=== PATIENT | male | born 1955 | race Caucasian/White ===

== ENCOUNTER 2021-03-26 07:13 | Day surgery (SDC) | payer MEDICARE, MEDICAID ==
[2021-03-26] VITALS (11 sets, daily range): BP systolic 100–165; BP diastolic 58–96
[~2021-03-26] VITALS: Ht 170.2 cm; Wt 79.3 kg
[2021-03-26] MEDS ORDERED: NO HOME MEDS (07:34)
[2021-03-26] MEDS ORDERED: LIDOcaine 1% 30ml preserv. free vial SQ STA (07:45)
[2021-03-26] MEDS: albumin 25% 100mL bottle x 1 IV PRN ×2 (09:15→10:10)
--- NOTE | 2021-03-26 09:48 | NUR ---
Paracentesis cath removed, cath intact, small amt of blood noted at procedure site, pressure applied, hemostasis achieved easily, drsg applied. VSS, pt carlin procedure well. Now pt sitting up in bed drinking juice and doughnut that Lise brought in pt tolerating food and drink.
== END 2021-03-26 11:15 | disposition home or self-care (01) ==
LOC: SSTAY O 07:13
PROVIDERS: ATTEND Preventive Medicine Aerospace Medicine
DX: R18.8 Other ascites (principal); I25.2 Old myocardial infarction; Z86.19 Personal history of other infectious and parasitic diseases; Z98.890 Other specified postprocedural states; Z79.899 Other long term (current) drug therapy
CPT/HCPCS: 49083; J3490; P9047

== ENCOUNTER 2021-06-07 06:35 | Observation (INO) | payer MEDICARE, OTHER ==
[~2021-06-07] VITALS: Ht 170.2 cm; Wt 72.3 kg
[2021-06-07] VITALS (30 sets, daily range): BP systolic 60–137; BP diastolic 22–99
[~2021-06-07 06:35] MED LIST: NO HOME MEDS
[2021-06-07] MEDS ORDERED: SPIR50TA5 PO (06:59)
[2021-06-07] MEDS ORDERED: FURO40TA4 PO (06:59)
[2021-06-07] MEDS ORDERED: RIBA200T14 PO (06:59)
[2021-06-07] MEDS ORDERED: SOFO1TAB PO (06:59)
[2021-06-07] MEDS ORDERED: LIDOcaine 1%/PF 5ML 10 MG/ML VIAL IJ ONE (07:05)
[2021-06-07 10:57] LABS: ALBUMIN,BODY FLUID 1.1 G/DL; TOTAL PROTEIN,BODY FLUID 2.6 G/DL
[2021-06-07] MEDS ORDERED: normal saline 1000ml 1,000 ML IV ONE ×2 (11:20→12:30)
--- NOTE | 2021-06-07 11:20 | NUR ---
Notified Lydia GRAFF that patients BP 83/49. Order to bolus patient 1L normal saline and administer 1 more 25% albumin 100 mL.
[2021-06-07 11:47] LABS: BFAPPEAR CLEAR; BFCOLOR YELLOW
[2021-06-07 11:48] LABS: BF RBC COUNT 28 /CU MM; BF WBC COUNT 190 /CU MM (0-1000); BFVOLUME 49 ML; LYMPHOCYTES,BODY FLUID 74 %; MONOCYTES,BODY FLUID 16 %; NEUTROPHILS,BODY FLUID 10 %
--- NOTE | 2021-06-07 12:10 | NUR ---
Notified Dr. Sanches that patient remains hypotensive s/p large volume paracentesis. MD present bedside with orders to position patient in trendelenburg and continue to bolus patient with NS. Will continue to monitor.
--- NOTE | 2021-06-07 12:30 | NUR ---
Rapid response initiated to further evaluate patient for hypotension. Dr. Sanches present bedside.
--- NOTE | 2021-06-07 13:15 | NUR ---
Report called to ESDRAS Winn. Will transport patient to [facility] 3019.
--- NOTE | 2021-06-07 13:42 | NUR ---
Received patient to PCU. Pt was moved over to bed from [facility] with the help of 3 nurses. Pt is alert and oriented and is able to make his needs be known. SBP is holding in the 80's with a MAP greater than 60. Pt does not c/o pain or s/s of distress. DR Richard King is aware that the patient last used heroin this AM. Jamie wilkinson is aware that there are no orders. Pending all orders. Will monitor patient.
--- NOTE | 2021-06-07 14:02 | NUR ---
Dr King in room - orthostatic VS performed. He will enter admit orders. Ok to start NS @ 80.
[2021-06-07] MEDS ORDERED: acetaminophen 325mg tablet PO PRN (14:40)
[2021-06-07] MEDS ORDERED: normal saline 1000ml 1,000 ML IV SCH (14:40)
[2021-06-07] MEDS ORDERED: potassium CL 10mEq/100ml bag 100 ML IV PRN (14:40)
[2021-06-07] MEDS ORDERED: ondansetron/PF 4mg/2ml inj IV PRN (14:40)
[2021-06-07] MEDS ORDERED: potassium Cl 20 mEq SR tablet PO PRN ×2 (14:40)
[2021-06-07] MEDS ORDERED: magnesium 4gm in 100ml NS 100 ML IV PRN (14:40)
[2021-06-07 15:20] LABS: BASOPHILS % (AUTO) 0.2 % (0-1); EOSINOPHILS % (AUTO) 0.8 % (0-6); HEMOGLOBIN 10.6 g/dl (14.0-17.9); LYMPHOCYTES # (AUTO) 1.2 X10'3 (1.1-4.8); LYMPHOCYTES % (AUTO) 20.8 % (21-51); MEAN CORPUSCULAR HEMOGLOBIN 32.8 PG (27.0-31.0); MEAN CORPUSCULAR HGB CONC 33.1 g/dL (33.0-36.5); MEAN PLATELET VOLUME 8.8 FL (7.4-10.4); MONOCYTES # (AUTO) 0.4 X10'3 (0-0.9); MONOCYTES % (AUTO) 7.9 % (2-12); NEUTROPHILS # (AUTO) 3.9 X10'3 (1.8-7.7); NEUTROPHILS % (AUTO) 70.3 % (42-75); PLATELET COUNT 113 X10'3 (140-440); RED BLOOD COUNT 3.23 X10'6 (4.70-6.10); WHITE BLOOD COUNT 5.5 X10'3 (4.5-11.0)
[2021-06-07 15:35] LABS: ALANINE AMINOTRANSFERASE 12 U/L (12-78); ALBUMIN 3.7 G/DL (3.4-5.0); ALBUMIN/GLOBULIN RATIO 1.2 (1.1-1.5); ALKALINE PHOSPHATASE 59 IU/L (46-116); ANION GAP 9 (8-16); ASPARTATE AMINO TRANSFERASE 19 U/L (10-37); BILIRUBIN,TOTAL 1.8 MG/DL (0.1-1.0); BLOOD UREA NITROGEN 27 MG/DL (7-18); BUN/CREATININE RATIO 23.7 (5.4-32.0); CALCIUM 7.7 MG/DL (8.5-10.1); CHLORIDE 105 MMOL/L (99-107); CREATININE 1.14 MG/DL (0.60-1.10); GLUCOSE 86 MG/DL (70-104); MAGNESIUM 1.9 MG/DL (1.5-2.4); POTASSIUM 3.8 MMOL/L (3.5-5.1); SODIUM 141 MMOL/L (135-145); TOTAL CARBON DIOXIDE 26.6 MMOL/L (24-32); TOTAL PROTEIN 6.8 G/DL (6.4-8.2); eGFR 64 ML/MIN
--- NOTE | 2021-06-07 18:10 | NUR ---
1526 reassessment on NS in emar not completed as this medication is still active and long line teamster Christine wants to continue med.
[2021-06-07] MEDS: albumin 25% 100mL bottle x 1 IV PRN ×3 (19:42→19:46)
--- NOTE | 2021-06-07 21:49 | NUR ---
Spoke with Dr Levi regarding the patient c/o withdrawals from his heroine and his BP on NS. Order received to stop the NS and continue to monitor the patients vitals. Will continue to monitor the patient.
[2021-06-08] VITALS (8 sets, daily range): BP systolic 130–161; BP diastolic 67–97
--- NOTE | 2021-06-08 06:37 | NUR ---
Problems reprioritized. Patient report given, questions answered & plan of care reviewed with Nancy DEWITT.
[2021-06-08 07:55] LABS: CHOL/HDL RATIO 2.8 (0.00-4.99); CHOLESTEROL 84 MG/DL (0-200); HDL CHOLESTEROL 30 MG/DL (35-60); LDL CHOLESTEROL 49 MG/DL (50-100); TRIGLYCERIDES 53 MG/DL (20-135)
[2021-06-08] MEDS ORDERED: VELPATASVIR PO SCH (08:00)
[2021-06-08] MEDS ORDERED: furosemide 20MG tablet PO SCH (08:00)
[2021-06-08] MEDS ORDERED: spironolactone 50 MG tablet PO SCH (08:00)
[2021-06-08] MEDS ORDERED: SOFOSBUVIR PO SCH (08:00)
[2021-06-08] MEDS ORDERED: aspirin 81mg, enteric-coated 1 TAB TABLET.DR PO ONE (08:05)
[2021-06-08] MEDS: morphine 4 MG/ML inj SYRINge IV PRN ×2 (10:28→14:18)
[2021-06-08] MEDS ORDERED: enoxaparin 60mg/0.6ml syringe SUBCUT SCH (10:28)
[2021-06-08] MEDS ORDERED: RIBA200T14 PO (13:34)
--- NOTE | 2021-06-08 16:51 | NUR ---
Patient reported having minimal drops of blood coming out from tip of penis. I examined penis and there does not seem to be any skin tears. Dr. King is aware and recommends patient monitor bleeding and if it persists, come back to ED. Discharge paperwork was reviewed with patient and SO at bedside. IV removed, catheter tip intact. Home medications received from pharmacy and given to patient. Patient free from injuries. Currently showering, then will go home.
== END 2021-06-08 17:42 | disposition home or self-care (01) ==
LOC: SSTAY O 06:35 → UNDOADMOB 13:58 → PCU 3S 13:58 → UNDODISOB 06-08 17:42
PROVIDERS: ADMIT Internal Medicine; ATTEND Internal Medicine
DX: I95.81 Postprocedural hypotension (principal); K74.60 Unspecified cirrhosis of liver; R18.8 Other ascites; E86.1 Hypovolemia; B19.20 Unspecified viral hepatitis C without hepatic coma; K76.6 Portal hypertension; H66.90 Otitis media, unspecified, unspecified ear; I05.0 Rheumatic mitral stenosis; I21.A1 Myocardial infarction type 2; I85.10 Secondary esophageal varices without bleeding; F17.200 Nicotine dependence, unspecified, uncomplicated; I25.2 Old myocardial infarction; F11.90 Opioid use, unspecified, uncomplicated; F15.90 Other stimulant use, unspecified, uncomplicated; Z79.899 Other long term (current) drug therapy
CPT/HCPCS: 36415; 49083; 71045; 80053; 80061; 82042; 83735; 84157; 84484; 85025; 85610; 87070; 87081; 89051; 93306; 96361; 96365; 96366; 96372; 96375; 96376; G0378; G0379; J1650; J2270; J7030; P9047; 96374

== ENCOUNTER 2021-07-05 07:17 | Day surgery (SDC) | payer MEDICARE, MEDICAID ==
[~2021-07-05] VITALS: Ht 177.8 cm; Wt 69.1 kg
[2021-07-05] VITALS (16 sets, daily range): BP systolic 105–154; BP diastolic 47–77
[~2021-07-05 07:17] MED LIST changes: +FURO40TA4 PO; -NO HOME MEDS; +RIBA200T14 PO; +SOFO1TAB PO; +SPIR50TA5 PO
[2021-07-05] MEDS ORDERED: LIDOcaine 1%/PF 5ML 10 MG/ML VIAL SQ ONE (07:45)
[2021-07-05] MEDS ORDERED: METH-603 PO (07:55)
[2021-07-05] MEDS: albumin 25% 100mL bottle x 1 IV PRN ×3 (09:45→12:08)
[2021-07-05 11:16] LABS: TOTAL PROTEIN,BODY FLUID 2.2 G/DL
[2021-07-05 11:32] LABS: LYMPHOCYTES,BODY FLUID 75 %; MONOCYTES,BODY FLUID 17 %; NEUTROPHILS,BODY FLUID 8 %
[2021-07-05 11:33] LABS: BF MESOTHELIAL CELLS OCCASIONAL; BF RBC COUNT 200 /CU MM; BF WBC COUNT 243 /CU MM (0-1000); BFAPPEAR CLEAR; BFCOLOR YELLOW; BFVOLUME 55 ML
== END 2021-07-05 13:20 | disposition home or self-care (01) ==
LOC: SSTAY O 07:17
PROVIDERS: ATTEND Radiology Vascular & Interventional Radiology
DX: R18.8 Other ascites (principal); I25.2 Old myocardial infarction; Z86.19 Personal history of other infectious and parasitic diseases; Z90.79 Acquired absence of other genital organ(s); Z79.899 Other long term (current) drug therapy
CPT/HCPCS: 49083; 82042; 84157; 89051; J3490; P9047

== ENCOUNTER 2021-08-26 08:36 | Day surgery (SDC) | payer MEDICARE, MEDICAID ==
[2021-08-26] VITALS (11 sets, daily range): BP systolic 115–158; BP diastolic 56–96
[~2021-08-26] VITALS: Ht 170.2 cm; Wt 68.2 kg
[~2021-08-26 08:36] MED LIST changes: +METH-603 PO
[2021-08-26] MEDS ORDERED: LIDOcaine 1%/PF 5ML 10 MG/ML VIAL SQ ONE (08:45)
[2021-08-26] MEDS ORDERED: METH-603 PO (08:50)
[2021-08-26] MEDS: albumin 25% 100mL bottle x 1 IV PRN ×2 (10:37→10:38)
== END 2021-08-26 12:10 | disposition home or self-care (01) ==
LOC: SSTAY O 08:36
PROVIDERS: ATTEND Radiology Diagnostic Radiology
DX: R18.8 Other ascites (principal); K74.60 Unspecified cirrhosis of liver; Z79.899 Other long term (current) drug therapy; Z98.890 Other specified postprocedural states; Z86.19 Personal history of other infectious and parasitic diseases
CPT/HCPCS: 49083; J3490; P9047; Z7610; A6258; A6449

== ENCOUNTER 2021-09-28 00:53 | Inpatient (IN) | payer MEDICARE, MEDICAID ==
[~2021-09-28] VITALS: Ht 170.2 cm; Wt 77.5 kg
[~2021-09-28 00:53] MED LIST changes: -RIBA200T14 PO; -SOFO1TAB PO
[2021-09-28 04:24] LABS: APTT 30 SECONDS (22-32); BASOPHILS % (AUTO) 0.4 % (0-1); EOSINOPHILS % (AUTO) 0 % (0-6); HEMOGLOBIN 13.7 g/dl (14.0-17.9); LYMPHOCYTES # (AUTO) 0.8 X10'3 (1.1-4.8); LYMPHOCYTES % (AUTO) 11.6 % (21-51); MEAN CORPUSCULAR HEMOGLOBIN 32.9 PG (27.0-31.0); MEAN CORPUSCULAR HGB CONC 33.5 g/dL (33.0-36.5); MEAN CORPUSCULAR VOLUME 98.3 FL (78-98); MEAN PLATELET VOLUME 8.9 FL (7.4-10.4); MONOCYTES # (AUTO) 0.5 X10'3 (0-0.9); MONOCYTES % (AUTO) 7.7 % (2-12); NEUTROPHILS # (AUTO) 5.6 X10'3 (1.8-7.7); NEUTROPHILS % (AUTO) 80.3 % (42-75); PLATELET COUNT 104 X10'3 (140-440); RED BLOOD COUNT 4.17 X10'6 (4.70-6.10); RED CELL DISTRIBUTION WIDTH 13.6 % (11.5-14.5); WHITE BLOOD COUNT 6.9 X10'3 (4.5-11.0)
[2021-09-28 04:25] LABS: ALANINE AMINOTRANSFERASE 21 U/L (12-78); ALBUMIN 2.9 G/DL (3.4-5.0); ALBUMIN/GLOBULIN RATIO 0.7 (1.1-1.5); ALKALINE PHOSPHATASE 75 IU/L (46-116); ANION GAP 6 (8-16); ASPARTATE AMINO TRANSFERASE 22 U/L (10-37); BILIRUBIN,TOTAL 0.9 MG/DL (0.1-1.0); BLOOD UREA NITROGEN 19 MG/DL (7-18); BUN/CREATININE RATIO 19.6 (5.4-32.0); CALCIUM 7.9 MG/DL (8.5-10.1); CHLORIDE 102 MMOL/L (99-107); CREATININE 0.97 MG/DL (0.60-1.10); GLUCOSE 111 MG/DL (70-104); POTASSIUM 3.9 MMOL/L (3.5-5.1); SODIUM 140 MMOL/L (135-145); TOTAL CARBON DIOXIDE 31.6 MMOL/L (24-32); TOTAL PROTEIN 7.2 G/DL (6.4-8.2); eGFR 77 ML/MIN
[2021-09-28] MEDS ORDERED: HYDROmorphone 1 mg/ml syringe IV ONE ×2 (04:40→05:20)
[2021-09-28] MEDS ORDERED: mag hydrox/Alum hydrox/simeth 30ml oral suspension PO PRN (05:55)
[2021-09-28] MEDS ORDERED: POTASSIUM BICARB 20meq eff tab 20 MEQ TABLET.EFF PO PRN ×2 (05:55)
[2021-09-28] MEDS ORDERED: ondansetron/PF 4mg/2ml inj IV PRN (05:55)
[2021-09-28] MEDS ORDERED: acetaminophen 325mg tablet PO PRN (05:55)
[2021-09-28] MEDS ORDERED: magnesium 4gm in 100ml NS 100 ML IV PRN (05:55)
[2021-09-28] MEDS ORDERED: potassium CL 10mEq/100ml bag 100 ML IV PRN (05:55)
[2021-09-28] MEDS ORDERED: magnesium hydroxide 30ml (MOM) UD suspension PO PRN (05:55)
[2021-09-28] MEDS ORDERED: HYDROmorphone/PF 0.2 MG/ML SYRINGE IV PRN (05:55)
[2021-09-28] MEDS ORDERED: magnesium Cl slow-release 64mg tablet PO PRN (05:55)
[2021-09-28] MEDS ORDERED: magnesium 2GM in 50ml NS 50 ML IV PRN (05:55)
[2021-09-28] MEDS: methadone 10mg tablet PO SCH (08:00)
[2021-09-28] MEDS: K and/or MAG REPLACEMENT MC SCH ×2 (08:00→20:00)
[2021-09-28] MEDS: enoxaparin 40mg/0.4ml syringe SUBCUT SCH (08:00)
--- NOTE | 2021-09-28 08:18 | NUR ---
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 DOSE ON APR NO ADMIN
[2021-09-28 08:48] LABS: APTT 31 SECONDS (22-32)
[2021-09-28] MEDS: docusate sod 100mg capsule PO SCH ×2 (09:01→20:21)
[2021-09-28] MEDS: furosemide 40mg tablet PO SCH (09:02)
--- NOTE | 2021-09-28 09:11 | NUR ---
COVID swab done.
[2021-09-28] MEDS: HYDROmorphone inj. 0.5 MG/0.5 ML DISP.SYRIN IV PRN ×3 (10:53→20:30)
[2021-09-28 12:07] VITALS: BP 127/78
[2021-09-28] MEDS: HYDROcodone/acetaminophen 10/325mg tab PO PRN (14:33)
[2021-09-28 17:00] VITALS: BP 143/67
--- NOTE | 2021-09-28 19:34 | NUR ---
Patient in room ORTHO 4010. I have received report from STEFFANIE DEWITT and had the opportunity to ask questions and assume patient care.
[2021-09-28 22:00] VITALS: BP 140/79
[2021-09-29] VITALS (14 sets, daily range): BP systolic 116–154; BP diastolic 52–89
[2021-09-29] MEDS: HYDROmorphone inj. 0.5 MG/0.5 ML DISP.SYRIN IV PRN ×4 (00:25→17:12)
[2021-09-29 06:28] LABS: BASOPHILS % (AUTO) 0.2 % (0-1); EOSINOPHILS # (AUTO) 0.1 X10'3 (0-0.9); EOSINOPHILS % (AUTO) 1.4 % (0-6); HEMATOCRIT 37.3 % (42.0-52.0); HEMOGLOBIN 12.4 g/dl (14.0-17.9); LYMPHOCYTES # (AUTO) 1.5 X10'3 (1.1-4.8); LYMPHOCYTES % (AUTO) 28.9 % (21-51); MEAN CORPUSCULAR HEMOGLOBIN 32.9 PG (27.0-31.0); MEAN CORPUSCULAR HGB CONC 33.3 g/dL (33.0-36.5); MEAN CORPUSCULAR VOLUME 98.7 FL (78-98); MONOCYTES # (AUTO) 0.5 X10'3 (0-0.9); MONOCYTES % (AUTO) 9.9 % (2-12); NEUTROPHILS # (AUTO) 3.1 X10'3 (1.8-7.7); NEUTROPHILS % (AUTO) 59.6 % (42-75); PLATELET COUNT 100 X10'3 (140-440); RED BLOOD COUNT 3.78 X10'6 (4.70-6.10); RED CELL DISTRIBUTION WIDTH 13.4 % (11.5-14.5); WHITE BLOOD COUNT 5.3 X10'3 (4.5-11.0)
--- NOTE | 2021-09-29 06:44 | NUR ---
Problems reprioritized. Patient report given, questions answered & plan of care reviewed with STEFFANIE DEWITT.
[2021-09-29 07:09] LABS: ALANINE AMINOTRANSFERASE 20 U/L (12-78); ALBUMIN 2.3 G/DL (3.4-5.0); ALBUMIN/GLOBULIN RATIO 0.6 (1.1-1.5); ALKALINE PHOSPHATASE 58 IU/L (46-116); ANION GAP 7 (8-16); ASPARTATE AMINO TRANSFERASE 31 U/L (10-37); BILIRUBIN,TOTAL 0.8 MG/DL (0.1-1.0); BLOOD UREA NITROGEN 20 MG/DL (7-18); BUN/CREATININE RATIO 20.2 (5.4-32.0); CALCIUM 7.5 MG/DL (8.5-10.1); CHLORIDE 103 MMOL/L (99-107); CREATININE 0.99 MG/DL (0.60-1.10); GLUCOSE 65 MG/DL (70-104); SODIUM 140 MMOL/L (135-145); TOTAL CARBON DIOXIDE 30.4 MMOL/L (24-32); TOTAL PROTEIN 6.2 G/DL (6.4-8.2); eGFR 75 ML/MIN
[2021-09-29] MEDS ORDERED: morphine 2 MG/ML inj. syringe IV PRN (07:20)
[2021-09-29] MEDS ORDERED: ondansetron/PF 4mg/2ml inj IV PRN (07:20)
[2021-09-29] MEDS ORDERED: labetalol 20mg/4ml (5mg/ml) syringe IV PRN (07:20)
[2021-09-29] MEDS ORDERED: morphine 4 MG/ML inj SYRINge IV PRN (07:20)
[2021-09-29] MEDS ORDERED: ringers solution, lacted 1,000 ML IV SCH (07:20)
[2021-09-29] MEDS ORDERED: fentaNYL/PF 50MCG/1 ML 2ML syringe IV PRN ×2 (07:20)
[2021-09-29] MEDS ORDERED: hydrALAZINE 20mg/ml inj. IV PRN (07:20)
[2021-09-29] MEDS: enoxaparin 40mg/0.4ml syringe SUBCUT SCH (08:00)
[2021-09-29] MEDS: K and/or MAG REPLACEMENT MC SCH ×2 (08:00→20:00)
[2021-09-29] MEDS: furosemide 40mg tablet PO SCH (08:28)
[2021-09-29] MEDS: docusate sod 100mg capsule PO SCH ×2 (08:28→20:15)
[2021-09-29] MEDS: methadone 10mg tablet PO SCH (08:28)
[2021-09-29] MEDS ORDERED: BUPIVAcaine/PF 2.5 mg/ml (0.25%) 30ml vial ONE (09:18)
[2021-09-29] MEDS ORDERED: fentaNYL/PF 50MCG/1 ML 2ML syringe ONE (09:37)
[2021-09-29] MEDS ORDERED: midazolam 1 mg/ML 2ml injection ONE (09:37)
[2021-09-29] MEDS ORDERED: etomidate 2mg/ml inj. ONE (09:37)
[2021-09-29] MEDS ORDERED: ondansetron/PF 4mg/2ml inj ONE (09:38)
[2021-09-29] MEDS ORDERED: ceFAZolin 1000mg inj ONE ×2 (10:04)
[2021-09-29] MEDS ORDERED: LIDOcaine 1% W/epiNEPHrine 1:100,000 20ml vial ONE (10:15)
--- NOTE | 2021-09-29 10:55 | NUR ---
Received from OR via , accompanied by Anesthesiologist DR MUNROE and report given by Anesthesiolgist. PT IS UNRESPONSIVE WITH ORAL AIRWAY IN PLACE, VSS, O2 SAT 100%, RIGHT HIP 4X4;S WITH OPSITE CD, RIGHT FA 20G PATENT WITH LR 100ML/HR, RIGHT PEDAL PULSE VIA DOPPLER, NO C/O PAIN.
--- NOTE | 2021-09-29 11:35 | NUR ---
ORAL AIRWAY REMOVED, PT AWAKE AND SATING 95%
--- NOTE | 2021-09-29 11:37 | NUR ---
Report called to receiving nurse. Transferred via BED Belongings . Special Issues communicated to receiving nurse.PT IS AWAKE, ANSWERING SIMPLE QUESTIONS, NO C/O PAIN, VSS, IV PATENT, SCDS, RIGHT HIP DRESSING-RUDOLPH, XEROFORM AND 4X4S WITH OPSITE, PT MEETS DISCHARGE CRITERIA.
--- NOTE | 2021-09-29 11:59 | NUR ---
received report from recovery, patient arrived to floor, sleepy but oriented, no c/o pain IV fluids running as ordered, post op vitals started and stable
[2021-09-29] MEDS: HYDROcodone/acetaminophen 10/325mg tab PO PRN (20:15)
[2021-09-30] VITALS (10 sets, daily range): BP systolic 88–158; BP diastolic 49–89
[2021-09-30] MEDS: HYDROmorphone inj. 0.5 MG/0.5 ML DISP.SYRIN IV PRN (00:24)
[2021-09-30] MEDS: HYDROcodone/acetaminophen 10/325mg tab PO PRN ×2 (05:09→14:55)
[2021-09-30 06:09] LABS: BASOPHILS % (AUTO) 0.1 % (0-1); EOSINOPHILS % (AUTO) 0 % (0-6); HEMATOCRIT 37.7 % (42.0-52.0); HEMOGLOBIN 12.6 g/dl (14.0-17.9); LYMPHOCYTES # (AUTO) 1.1 X10'3 (1.1-4.8); LYMPHOCYTES % (AUTO) 13.7 % (21-51); MEAN CORPUSCULAR HEMOGLOBIN 32.8 PG (27.0-31.0); MEAN CORPUSCULAR HGB CONC 33.4 g/dL (33.0-36.5); MEAN CORPUSCULAR VOLUME 98.1 FL (78-98); MEAN PLATELET VOLUME 9.2 FL (7.4-10.4); MONOCYTES # (AUTO) 0.7 X10'3 (0-0.9); MONOCYTES % (AUTO) 8.4 % (2-12); NEUTROPHILS # (AUTO) 6.1 X10'3 (1.8-7.7); NEUTROPHILS % (AUTO) 77.8 % (42-75); PLATELET COUNT 109 X10'3 (140-440); RED BLOOD COUNT 3.85 X10'6 (4.70-6.10); RED CELL DISTRIBUTION WIDTH 13.8 % (11.5-14.5); WHITE BLOOD COUNT 7.9 X10'3 (4.5-11.0)
[2021-09-30 06:27] LABS: ALANINE AMINOTRANSFERASE 19 U/L (12-78); ALBUMIN 2.3 G/DL (3.4-5.0); ALBUMIN/GLOBULIN RATIO 0.6 (1.1-1.5); ALKALINE PHOSPHATASE 55 IU/L (46-116); ANION GAP 7 (8-16); ASPARTATE AMINO TRANSFERASE 27 U/L (10-37); BILIRUBIN,TOTAL 0.4 MG/DL (0.1-1.0); BLOOD UREA NITROGEN 30 MG/DL (7-18); BUN/CREATININE RATIO 22.4 (5.4-32.0); CALCIUM 7.6 MG/DL (8.5-10.1); CHLORIDE 101 MMOL/L (99-107); CREATININE 1.34 MG/DL (0.60-1.10); GLUCOSE 137 MG/DL (70-104); POTASSIUM 4.2 MMOL/L (3.5-5.1); SODIUM 138 MMOL/L (135-145); TOTAL CARBON DIOXIDE 30.5 MMOL/L (24-32); TOTAL PROTEIN 6.4 G/DL (6.4-8.2); eGFR 53 ML/MIN
--- NOTE | 2021-09-30 06:30 | NUR ---
Patient in room ORTHO 4023. I have received report from Christine Rodríguez and had the opportunity to ask questions and assume patient care.
[2021-09-30] MEDS: docusate sod 100mg capsule PO SCH ×2 (07:55→20:00)
[2021-09-30] MEDS: methadone 10mg tablet PO SCH (07:56)
[2021-09-30] MEDS: furosemide 40mg tablet PO SCH (07:58)
[2021-09-30] MEDS: K and/or MAG REPLACEMENT MC SCH ×2 (08:00→20:00)
[2021-09-30] MEDS: enoxaparin 40mg/0.4ml syringe SUBCUT SCH (08:00)
[2021-09-30] MEDS ORDERED: LIDOcaine 1%/PF 5ML 10 MG/ML VIAL ONE (09:08)
[2021-09-30] MEDS ORDERED: albumin (human) 25% 100 ML IV solution IV ONE (10:35)
[2021-09-30] MEDS ORDERED: ondansetron 4mg rapidly disintigrating tab PO PRN (10:40)
--- NOTE | 2021-09-30 18:12 | NUR ---
Problems reprioritized. Patient report given, questions answered & plan of care reviewed with Christine Rodríguez
[2021-10-01 06:00] VITALS: BP 110/59
--- NOTE | 2021-10-01 06:05 | NUR ---
Patient in room ORTHO 4023. I have received report from Christine Rodríguez and had the opportunity to ask questions and assume patient care.
[2021-10-01 06:19] LABS: BASOPHILS % (AUTO) 0.1 % (0-1); EOSINOPHILS % (AUTO) 0.4 % (0-6); HEMATOCRIT 37.3 % (42.0-52.0); HEMOGLOBIN 12.4 g/dl (14.0-17.9); LYMPHOCYTES # (AUTO) 1.6 X10'3 (1.1-4.8); LYMPHOCYTES % (AUTO) 23.7 % (21-51); MEAN CORPUSCULAR HEMOGLOBIN 32.7 PG (27.0-31.0); MEAN CORPUSCULAR HGB CONC 33.3 g/dL (33.0-36.5); MEAN CORPUSCULAR VOLUME 98.2 FL (78-98); MEAN PLATELET VOLUME 8.7 FL (7.4-10.4); MONOCYTES # (AUTO) 0.6 X10'3 (0-0.9); MONOCYTES % (AUTO) 8.9 % (2-12); NEUTROPHILS # (AUTO) 4.4 X10'3 (1.8-7.7); NEUTROPHILS % (AUTO) 66.9 % (42-75); PLATELET COUNT 99 X10'3 (140-440); RED BLOOD COUNT 3.79 X10'6 (4.70-6.10); RED CELL DISTRIBUTION WIDTH 13.3 % (11.5-14.5); WHITE BLOOD COUNT 6.5 X10'3 (4.5-11.0)
[2021-10-01 06:23] LABS: ALANINE AMINOTRANSFERASE 16 U/L (12-78); ALBUMIN 2.7 G/DL (3.4-5.0); ALBUMIN/GLOBULIN RATIO 0.9 (1.1-1.5); ALKALINE PHOSPHATASE 48 IU/L (46-116); ANION GAP 7 (8-16); ASPARTATE AMINO TRANSFERASE 28 U/L (10-37); BILIRUBIN,TOTAL 0.6 MG/DL (0.1-1.0); BLOOD UREA NITROGEN 28 MG/DL (7-18); BUN/CREATININE RATIO 26.7 (5.4-32.0); CALCIUM 7.4 MG/DL (8.5-10.1); CHLORIDE 104 MMOL/L (99-107); CREATININE 1.05 MG/DL (0.60-1.10); GLUCOSE 113 MG/DL (70-104); SODIUM 141 MMOL/L (135-145); TOTAL CARBON DIOXIDE 29.9 MMOL/L (24-32); TOTAL PROTEIN 5.7 G/DL (6.4-8.2); eGFR 70 ML/MIN
[2021-10-01] MEDS: K and/or MAG REPLACEMENT MC SCH ×2 (07:26→19:49)
[2021-10-01] MEDS: docusate sod 100mg capsule PO SCH ×2 (07:33→19:49)
[2021-10-01] MEDS: methadone 10mg tablet PO SCH (07:34)
[2021-10-01] MEDS: enoxaparin 40mg/0.4ml syringe SUBCUT SCH (07:36)
[2021-10-01] MEDS: furosemide 40mg tablet PO SCH (07:38)
[2021-10-01 07:40] VITALS: BP 116/64
[2021-10-01] MEDS: HYDROcodone/acetaminophen 10/325mg tab PO PRN ×3 (08:48→21:12)
[2021-10-01 10:00] VITALS: BP 136/55
[2021-10-01 18:00] VITALS: BP 119/62
--- NOTE | 2021-10-01 18:18 | NUR ---
Problems reprioritized. Patient report given, questions answered & plan of care reviewed with Christine Rodríguez
[2021-10-01 22:00] VITALS: BP 111/66
[2021-10-02] MEDS: HYDROcodone/acetaminophen 10/325mg tab PO PRN ×2 (01:24→12:59)
[2021-10-02 06:00] VITALS: BP 102/55
[2021-10-02 06:26] LABS: ALANINE AMINOTRANSFERASE 18 U/L (12-78); ALBUMIN 2.3 G/DL (3.4-5.0); ALBUMIN/GLOBULIN RATIO 0.7 (1.1-1.5); ALKALINE PHOSPHATASE 57 IU/L (46-116); ANION GAP 5 (8-16); ASPARTATE AMINO TRANSFERASE 30 U/L (10-37); BILIRUBIN,TOTAL 0.4 MG/DL (0.1-1.0); BLOOD UREA NITROGEN 26 MG/DL (7-18); BUN/CREATININE RATIO 29.9 (5.4-32.0); CALCIUM 7.3 MG/DL (8.5-10.1); CHLORIDE 105 MMOL/L (99-107); CREATININE 0.87 MG/DL (0.60-1.10); GLUCOSE 72 MG/DL (70-104); POTASSIUM 3.8 MMOL/L (3.5-5.1); SODIUM 141 MMOL/L (135-145); TOTAL CARBON DIOXIDE 30.6 MMOL/L (24-32); TOTAL PROTEIN 5.4 G/DL (6.4-8.2); eGFR 87 ML/MIN
[2021-10-02 06:31] LABS: BASOPHILS % (AUTO) 0.2 % (0-1); EOSINOPHILS # (AUTO) 0.1 X10'3 (0-0.9); EOSINOPHILS % (AUTO) 1.3 % (0-6); HEMOGLOBIN 11.9 g/dl (14.0-17.9); LYMPHOCYTES # (AUTO) 1.8 X10'3 (1.1-4.8); LYMPHOCYTES % (AUTO) 31.7 % (21-51); MEAN CORPUSCULAR HEMOGLOBIN 32.6 PG (27.0-31.0); MEAN CORPUSCULAR HGB CONC 33.2 g/dL (33.0-36.5); MEAN CORPUSCULAR VOLUME 98.4 FL (78-98); MEAN PLATELET VOLUME 8.6 FL (7.4-10.4); MONOCYTES # (AUTO) 0.6 X10'3 (0-0.9); MONOCYTES % (AUTO) 10.8 % (2-12); NEUTROPHILS # (AUTO) 3.1 X10'3 (1.8-7.7); PLATELET COUNT 96 X10'3 (140-440); RED BLOOD COUNT 3.65 X10'6 (4.70-6.10); RED CELL DISTRIBUTION WIDTH 13.4 % (11.5-14.5); WHITE BLOOD COUNT 5.6 X10'3 (4.5-11.0)
--- NOTE | 2021-10-02 07:03 | NUR ---
Patient in room ORTHO 4023. I have received report from Christine Rodríguez and had the opportunity to ask questions and assume patient care.
[2021-10-02] MEDS: enoxaparin 40mg/0.4ml syringe SUBCUT SCH (07:36)
[2021-10-02] MEDS: K and/or MAG REPLACEMENT MC SCH ×2 (07:37→20:00)
[2021-10-02] MEDS: methadone 10mg tablet PO SCH (07:43)
[2021-10-02] MEDS: docusate sod 100mg capsule PO SCH ×2 (07:44→19:31)
[2021-10-02] MEDS: furosemide 40mg tablet PO SCH (07:44)
--- NOTE | 2021-10-02 08:39 | NUR ---
Initial: Pt admitted w/ right femoral neck fracture and recurrent ascites, s/p closed reduction and percutaneous pinning and paracentesis w/ 8.8L out this admit per EMR. Currently on Regular diet w/ mostly 75-100% intake of meals meeting est nutrient needs at this time. LBM 09/30 receiving routine colace. No nutrition intervention implemented at this time, will continue to monitor. Recs: 1. Continue Regular diet as tolerated 2. Bowel care per rx 3. Weekly wts Addendum: 10/02/21 at [address] Amended: Links added.
[2021-10-02 10:00] VITALS: BP 117/71
--- NOTE | 2021-10-02 13:08 | NUR ---
Reviewed charting with Cyndie during documentation. I agree with the charted assessment.
[2021-10-02 18:00] VITALS: BP 135/78
--- NOTE | 2021-10-02 18:11 | NUR ---
Patient in room ORTHO 4023. I have received report from Christine Rodríguez and had the opportunity to ask questions and assume patient care.
[2021-10-02 22:00] VITALS: BP 133/64
[2021-10-03 06:21] LABS: BASOPHILS % (AUTO) 0.3 % (0-1); EOSINOPHILS # (AUTO) 0.1 X10'3 (0-0.9); EOSINOPHILS % (AUTO) 2.9 % (0-6); HEMATOCRIT 35.2 % (42.0-52.0); LYMPHOCYTES # (AUTO) 1.5 X10'3 (1.1-4.8); LYMPHOCYTES % (AUTO) 31.1 % (21-51); MEAN CORPUSCULAR HEMOGLOBIN 33.2 PG (27.0-31.0); MEAN CORPUSCULAR VOLUME 97.6 FL (78-98); MEAN PLATELET VOLUME 8.7 FL (7.4-10.4); MONOCYTES # (AUTO) 0.5 X10'3 (0-0.9); MONOCYTES % (AUTO) 9.3 % (2-12); NEUTROPHILS # (AUTO) 2.8 X10'3 (1.8-7.7); NEUTROPHILS % (AUTO) 56.4 % (42-75); PLATELET COUNT 106 X10'3 (140-440); RED CELL DISTRIBUTION WIDTH 13.6 % (11.5-14.5); WHITE BLOOD COUNT 4.9 X10'3 (4.5-11.0)
[2021-10-03 06:54] LABS: ALANINE AMINOTRANSFERASE 20 U/L (12-78); ALBUMIN 2.4 G/DL (3.4-5.0); ALBUMIN/GLOBULIN RATIO 0.8 (1.1-1.5); ALKALINE PHOSPHATASE 59 IU/L (46-116); ANION GAP 3 (8-16); ASPARTATE AMINO TRANSFERASE 30 U/L (10-37); BILIRUBIN,TOTAL 0.5 MG/DL (0.1-1.0); BLOOD UREA NITROGEN 23 MG/DL (7-18); BUN/CREATININE RATIO 26.4 (5.4-32.0); CALCIUM 7.4 MG/DL (8.5-10.1); CHLORIDE 104 MMOL/L (99-107); CREATININE 0.87 MG/DL (0.60-1.10); GLUCOSE 82 MG/DL (70-104); POTASSIUM 4.4 MMOL/L (3.5-5.1); SODIUM 141 MMOL/L (135-145); TOTAL CARBON DIOXIDE 33.6 MMOL/L (24-32); TOTAL PROTEIN 5.5 G/DL (6.4-8.2); eGFR 87 ML/MIN
[2021-10-03] MEDS: docusate sod 100mg capsule PO SCH ×2 (07:25→20:58)
[2021-10-03] MEDS: methadone 10mg tablet PO SCH (07:25)
[2021-10-03] MEDS: furosemide 40mg tablet PO SCH (07:25)
[2021-10-03] MEDS: K and/or MAG REPLACEMENT MC SCH ×2 (07:27→20:00)
[2021-10-03] MEDS: enoxaparin 40mg/0.4ml syringe SUBCUT SCH (07:27)
[2021-10-03 07:50] VITALS: BP 130/63
[2021-10-03] MEDS: HYDROcodone/acetaminophen 10/325mg tab PO PRN ×3 (08:42→23:25)
[2021-10-03 10:00] VITALS: BP 120/78
[2021-10-03 18:00] VITALS: BP 129/62
--- NOTE | 2021-10-03 18:00 | NUR ---
Patient in room ORTHO 4023. I have received report from ESDRAS Erickson and had the opportunity to ask questions and assume patient care.
--- NOTE | 2021-10-03 18:08 | NUR ---
Problems reprioritized. Patient report given, questions answered & plan of care reviewed with ESDRAS Gonzalez.
[2021-10-03 22:00] VITALS: BP 98/53
--- NOTE | 2021-10-03 22:27 | NUR ---
I observed Sharlene HANNA administer oral medications and I reviewed her charting Chapin Ayala RN
--- NOTE | 2021-10-03 23:48 | NUR ---
BP 115/65 hr 52. patient resting, eyes closed. elevated foot of bed and lowered head. pt already asleep after norco dose. will continue to monitor blood pressure. reported to ESDRAS Gonzalez
--- NOTE | 2021-10-04 02:47 | NUR ---
Physical assessment check and I am o.k with
[2021-10-04] MEDS: HYDROcodone/acetaminophen 10/325mg tab PO PRN ×3 (05:32→19:09)
[2021-10-04 06:00] VITALS: BP 117/65
--- NOTE | 2021-10-04 06:33 | NUR ---
Problems reprioritized. Patient report given, questions answered & plan of care reviewed with ESDRAS Carey.
--- NOTE | 2021-10-04 06:33 | NUR ---
Patient in room ORTHO 4023. I have received report from ESDRAS Gonzalez and had the opportunity to ask questions and assume patient care.
[2021-10-04] MEDS: K and/or MAG REPLACEMENT MC SCH ×2 (08:00→19:10)
[2021-10-04] MEDS: enoxaparin 40mg/0.4ml syringe SUBCUT SCH (08:00)
[2021-10-04] MEDS: methadone 10mg tablet PO SCH (08:13)
[2021-10-04] MEDS: docusate sod 100mg capsule PO SCH ×2 (08:13→19:09)
[2021-10-04] MEDS: furosemide 40mg tablet PO SCH (08:15)
[2021-10-04 10:00] VITALS: BP 129/63
--- NOTE | 2021-10-04 17:25 | NUR ---
FIRE DISPATCHER documentation: I have reviewed and agree with all interventions, assessments performed and documented by Cherry Savage LVN.
[2021-10-04 18:00] VITALS: BP 146/87
--- NOTE | 2021-10-04 18:26 | NUR ---
Problems reprioritized. Patient report given, questions answered & plan of care reviewed with ESDRAS Guidry.
--- NOTE | 2021-10-04 19:17 | NUR ---
Dexter [place] due to patients hernia firm, purple and painful and burning. MD said they can assess tomorrow and it's not an emergency at this time.
[2021-10-04 22:00] VITALS: BP 126/80
--- NOTE | 2021-10-05 04:34 | NUR ---
I have reviewed and agree with all interventions, assessments performed and documented by Marta WOMACK.
[2021-10-05 06:00] VITALS: BP 111/61
--- NOTE | 2021-10-05 06:29 | NUR ---
Problems reprioritized. Patient report given, questions answered & plan of care reviewed with Wisam DEWITT.
[2021-10-05] MEDS: K and/or MAG REPLACEMENT MC SCH (08:00)
[2021-10-05] MEDS: docusate sod 100mg capsule PO SCH (08:27)
[2021-10-05] MEDS: methadone 10mg tablet PO SCH (08:27)
[2021-10-05] MEDS: furosemide 40mg tablet PO SCH (08:27)
[2021-10-05] MEDS: enoxaparin 40mg/0.4ml syringe SUBCUT SCH (08:28)
== END 2021-10-05 15:00 | disposition home health service (06) | DRG 480 ==
LOC: ER 00:53 → ED HOLD 06:02 → ORTHO 4S 11:24
PROVIDERS: ADMIT Family Medicine; ATTEND Family Medicine
PROC: 0QS634Z Reposition Right Upper Femur with Internal Fixation Device, Percutaneous Approach (ICD-10-PCS; principal; 2021-09-29 09:55)
PROC: 0W9G3ZZ Drainage of Peritoneal Cavity, Percutaneous Approach (ICD-10-PCS; 2021-09-30)
DX: S72.141A Displaced intertrochanteric fracture of right femur, initial encounter for closed fracture (principal); N17.0 Acute kidney failure with tubular necrosis; R18.8 Other ascites; K74.60 Unspecified cirrhosis of liver; Z20.822 Contact with and (suspected) exposure to COVID-19; W01.0XXA Fall on same level from slipping, tripping and stumbling without subsequent striking against object, initial encounter; G89.4 Chronic pain syndrome; F17.210 Nicotine dependence, cigarettes, uncomplicated; K42.9 Umbilical hernia without obstruction or gangrene; Y93.89 Activity, other specified; Y92.89 Other specified places as the place of occurrence of the external cause; Y99.8 Other external cause status
CPT/HCPCS: 36415; 49083; 71045; 72192; 73502; 76000; 80053; 82948; 84484; 85025; 85610; 85730; 87081; 87811; 93005; 93308; 96374; 96376; 97110; 97116; 97162; 97530; 99285; A4215; A4615; A4618; A6222; A6258; A6449; A7000; C1713; G0378; J0690; J1170; J1650; J2250; J2405; J3010; J3490; J7060; J7120; P9047

== ENCOUNTER 2021-10-28 06:45 | Day surgery (SDC) | payer MEDICARE, MEDICAID ==
[~2021-10-28] VITALS: Ht 170.2 cm; Wt 73.5 kg
[~2021-10-28 06:45] MED LIST changes: -SPIR50TA5 PO
[2021-10-28 06:57] VITALS: BP 132/84
[2021-10-28] MEDS ORDERED: albumin 25% 100mL bottle x 1 IV PRN (07:00)
[2021-10-28] MEDS ORDERED: LIDOcaine 1% 30ml preserv. free vial SQ STA (07:06)
[2021-10-28 08:45] VITALS: BP 198/63
[2021-10-28 09:00] VITALS: BP 132/69
[2021-10-28 09:15] VITALS: BP 132/68
[2021-10-28 09:20] VITALS: BP 125/68
[2021-10-28 09:45] VITALS: BP 123/67
== END 2021-10-28 09:50 | disposition home or self-care (01) ==
LOC: SSTAY O 06:45
PROVIDERS: ATTEND Radiology Diagnostic Radiology
DX: R18.8 Other ascites (principal); K74.60 Unspecified cirrhosis of liver; Z86.19 Personal history of other infectious and parasitic diseases; F17.210 Nicotine dependence, cigarettes, uncomplicated; Z79.899 Other long term (current) drug therapy; Z98.890 Other specified postprocedural states; F11.90 Opioid use, unspecified, uncomplicated
CPT/HCPCS: 49083; J3490; P9047; A6258; A6449

== ENCOUNTER 2021-11-21 08:26 | Day surgery (SDC) | payer MEDICARE, MEDICAID ==
[2021-11-21] VITALS (10 sets, daily range): BP systolic 108–156; BP diastolic 59–93
[~2021-11-21] VITALS: Ht 170.2 cm; Wt 74.0 kg
[2021-11-21] MEDS ORDERED: LIDOcaine 1% 30ml preserv. free vial SQ STA (08:43)
[2021-11-21] MEDS ORDERED: METH-603 PO (08:45)
[2021-11-21] MEDS: albumin 25% 100mL bottle x 1 IV PRN ×2 (11:14→12:12)
--- NOTE | 2021-11-21 12:55 | NUR ---
IV infiltrated. 2nd bottle of albumin not fully infused due to infiltration (about 20cc left). Patient did not want another IV.
== END 2021-11-21 13:00 | disposition home or self-care (01) ==
LOC: SSTAY O 08:26
PROVIDERS: ATTEND Radiology Diagnostic Radiology
DX: R18.8 Other ascites (principal); K74.60 Unspecified cirrhosis of liver; F17.210 Nicotine dependence, cigarettes, uncomplicated; Z86.19 Personal history of other infectious and parasitic diseases; Z79.899 Other long term (current) drug therapy; Z98.890 Other specified postprocedural states; Z72.89 Other problems related to lifestyle
CPT/HCPCS: 49083; P9047; A6258; A6402

== ENCOUNTER 2021-11-23 00:24 | Emergency (ER) | payer MEDICARE, MEDICAID ==
[~2021-11-23] VITALS: Ht 170.2 cm; Wt 66.0 kg
[2021-11-23 00:34] VITALS: BP 156/88
== END 2021-11-23 04:05 | disposition left against medical advice (07) ==
LOC: ER 00:25
DX: R18.8 Other ascites (principal); Z53.21 Procedure and treatment not carried out due to patient leaving prior to being seen by health care provider

== ENCOUNTER 2022-01-02 07:39 | Day surgery (SDC) | payer MEDICARE, MEDICAID ==
[2022-01-02] VITALS (7 sets, daily range): BP systolic 124–154; BP diastolic 70–93
[~2022-01-02] VITALS: Ht 170.2 cm; Wt 66.0 kg
[~2022-01-02 07:39] MED LIST changes: +SPIR100T5 PO
[2022-01-02] MEDS ORDERED: LIDOcaine 1% 30ml preserv. free vial SQ STA (07:49)
[2022-01-02] MEDS ORDERED: albumin 25% 100mL bottle x 1 IV PRN (08:10)
== END 2022-01-02 10:33 | disposition home or self-care (01) ==
LOC: SSTAY O 07:39
PROVIDERS: ATTEND Radiology Vascular & Interventional Radiology
DX: R18.8 Other ascites (principal); K74.60 Unspecified cirrhosis of liver; Z79.899 Other long term (current) drug therapy; F17.210 Nicotine dependence, cigarettes, uncomplicated; Z86.19 Personal history of other infectious and parasitic diseases; Z98.890 Other specified postprocedural states
CPT/HCPCS: 49083; J3490; P9047; A6258; A6449

== ENCOUNTER 2022-01-30 07:47 | Day surgery (SDC) | payer MEDICARE, MEDICAID ==
[~2022-01-30] VITALS: Ht 170.2 cm; Wt 69.8 kg
[2022-01-30] MEDS ORDERED: LIDOcaine 1% 30ml preserv. free vial SQ STA (08:10)
[2022-01-30 08:11] VITALS: BP 139/90
[2022-01-30] MEDS ORDERED: albumin 25% 100mL bottle x 1 IV PRN (08:50)
[2022-01-30 09:28] VITALS: BP 143/89
[2022-01-30 09:37] VITALS: BP 154/95
[2022-01-30 09:52] VITALS: BP 136/78
[2022-01-30 10:05] VITALS: BP 140/73
== END 2022-01-30 10:26 | disposition home or self-care (01) ==
LOC: SSTAY O 07:47
PROVIDERS: ATTEND Radiology Vascular & Interventional Radiology
DX: R18.8 Other ascites (principal); K74.60 Unspecified cirrhosis of liver; F17.210 Nicotine dependence, cigarettes, uncomplicated; Z98.890 Other specified postprocedural states
CPT/HCPCS: 49083; P9047; A6258

== ENCOUNTER 2022-02-18 08:30 | Day surgery (SDC) | payer MEDICARE, MEDICAID ==
[~2022-02-18] VITALS: Ht 154.9 cm; Wt 69.0 kg
[2022-02-18] VITALS (10 sets, daily range): BP systolic 108–151; BP diastolic 56–94
[2022-02-18] MEDS ORDERED: LIDOcaine 1% 30ml preserv. free vial SQ STA (08:44)
[2022-02-18] MEDS ORDERED: normal saline 1000ml 1,000 ML IV PRN (09:05)
[2022-02-18] MEDS ORDERED: albumin (human) 25% 100 ML IV solution IV PRN (09:10)
== END 2022-02-18 11:05 | disposition home or self-care (01) ==
LOC: SSTAY O 08:30
PROVIDERS: ATTEND Radiology Vascular & Interventional Radiology
DX: R18.8 Other ascites (principal); F17.210 Nicotine dependence, cigarettes, uncomplicated; F11.90 Opioid use, unspecified, uncomplicated; Z72.89 Other problems related to lifestyle; Z79.899 Other long term (current) drug therapy; K74.60 Unspecified cirrhosis of liver; Z86.19 Personal history of other infectious and parasitic diseases
CPT/HCPCS: 49083; J3490; P9047; A6258; A6449

== ENCOUNTER 2022-03-13 06:18 | Day surgery (SDC) | payer MEDICARE, MEDICAID ==
[~2022-03-13] VITALS: Ht 170.2 cm; Wt 67.4 kg
[2022-03-13] VITALS (10 sets, daily range): BP systolic 93–145; BP diastolic 38–77
[2022-03-13] MEDS ORDERED: LIDOcaine 1% 30ml preserv. free vial IJ STA (06:31)
[2022-03-13] MEDS: albumin 25% 100mL bottle x 1 IV PRN ×2 (08:24→09:45)
[2022-03-13 10:44] LABS: BF WBC COUNT 133 /CU MM (0-1000); BFAPPEAR CLEAR; BFCOLOR YELLOW; BFVOLUME 50 ML
[2022-03-13 10:45] LABS: BF RBC COUNT 2 /CU MM; EOSINOPHILS,BODY FLUID 2 %; LYMPHOCYTES,BODY FLUID 62 %; MONOCYTES,BODY FLUID 10 %; NEUTROPHILS,BODY FLUID 26 %
[2022-03-13 10:47] LABS: BF MESOTHELIAL CELLS FEW
== END 2022-03-13 11:05 | disposition home or self-care (01) ==
LOC: SSTAY O 06:18
PROVIDERS: ATTEND Radiology Vascular & Interventional Radiology
DX: R18.8 Other ascites (principal); R14.0 Abdominal distension (gaseous); K74.60 Unspecified cirrhosis of liver; B19.20 Unspecified viral hepatitis C without hepatic coma; F11.90 Opioid use, unspecified, uncomplicated; F15.90 Other stimulant use, unspecified, uncomplicated; F17.210 Nicotine dependence, cigarettes, uncomplicated; Z72.89 Other problems related to lifestyle; Z98.890 Other specified postprocedural states
CPT/HCPCS: 49083; 87070; 89051; J3490; P9047; A6258

== ENCOUNTER 2022-04-10 08:13 | Day surgery (SDC) | payer MEDICARE, MEDICAID ==
[~2022-04-10] VITALS: Ht 170.2 cm; Wt 70.3 kg
[2022-04-10 09:00] VITALS: BP 139/74
[2022-04-10] MEDS: albumin 25% 100mL bottle x 1 IV PRN ×2 (09:07→09:59)
[2022-04-10 09:31] VITALS: BP 163/98
[2022-04-10 09:45] VITALS: BP 121/68
[2022-04-10 10:00] VITALS: BP 135/71
[2022-04-10 10:16] VITALS: BP 119/67
[2022-04-10 10:30] VITALS: BP 111/60
[2022-04-10] MEDS ORDERED: ASPI-611 PO (12:25)
== END 2022-04-10 10:40 | disposition home or self-care (01) ==
LOC: SSTAY O 08:13
PROVIDERS: ATTEND Radiology Vascular & Interventional Radiology
DX: R18.8 Other ascites (principal); R14.0 Abdominal distension (gaseous); B19.20 Unspecified viral hepatitis C without hepatic coma; K74.60 Unspecified cirrhosis of liver; Z98.890 Other specified postprocedural states; F17.210 Nicotine dependence, cigarettes, uncomplicated; F11.90 Opioid use, unspecified, uncomplicated; F15.90 Other stimulant use, unspecified, uncomplicated; Z72.89 Other problems related to lifestyle; Z79.899 Other long term (current) drug therapy
CPT/HCPCS: 49083; P9047; A6258

== ENCOUNTER 2022-05-01 08:01 | Day surgery (SDC) | payer MEDICARE, MEDICAID ==
[~2022-05-01] VITALS: Ht 170.2 cm; Wt 69.5 kg
[~2022-05-01 08:01] MED LIST changes: +ASPI-611 PO
[2022-05-01] MEDS ORDERED: LIDOcaine 1% 30ml preserv. free vial SQ STA (08:50)
[2022-05-01] MEDS ORDERED: albumin 25% 100mL bottle x 1 IV PRN (09:10)
[2022-05-01 09:30] VITALS: BP 145/77
[2022-05-01] MEDS ORDERED: lactulose 20gm/30ml cup PO ONE (09:35)
--- NOTE | 2022-05-01 10:22 | NUR ---
Ultrasound by PRERNA didnt reveal much fluid, paracentesis not performed. Pt given lactulose dose per Hardik Silva, pt states feels foggy and very drowsy. Rx prescribed for patient
== END 2022-05-01 09:50 | disposition home or self-care (01) ==
LOC: SSTAY O 08:01
PROVIDERS: ATTEND Radiology Diagnostic Radiology
DX: R18.8 Other ascites (principal); Z53.8 Procedure and treatment not carried out for other reasons; K74.60 Unspecified cirrhosis of liver; B19.20 Unspecified viral hepatitis C without hepatic coma; Z98.890 Other specified postprocedural states; F17.210 Nicotine dependence, cigarettes, uncomplicated; Z72.89 Other problems related to lifestyle; Z79.82 Long term (current) use of aspirin; Z79.899 Other long term (current) drug therapy; F11.10 Opioid abuse, uncomplicated
CPT/HCPCS: A6258

== ENCOUNTER 2022-05-20 08:11 | Day surgery (SDC) | payer MEDICARE, MEDICAID ==
[~2022-05-20] VITALS: Ht 170.2 cm; Wt 70.3 kg
[2022-05-20 08:30] VITALS: BP 149/85
[2022-05-20] MEDS ORDERED: LACT10SO78 PO (08:42)
[2022-05-20] MEDS ORDERED: LIDOcaine 1% 30ml preserv. free vial SQ ONE (09:00)
[2022-05-20] MEDS ORDERED: albumin 25% 100mL bottle x 1 IV PRN (09:15)
[2022-05-20 09:50] VITALS: BP 139/81
[2022-05-20 10:05] VITALS: BP 140/87
[2022-05-20 10:20] VITALS: BP 128/76
[2022-05-20 10:30] VITALS: BP 130/76
[2022-05-20 10:45] VITALS: BP 115/59
== END 2022-05-20 10:53 | disposition home or self-care (01) ==
LOC: SSTAY O 08:11
PROVIDERS: ATTEND Radiology Vascular & Interventional Radiology
DX: R18.8 Other ascites (principal); Z86.19 Personal history of other infectious and parasitic diseases; Z87.898 Personal history of other specified conditions; K74.60 Unspecified cirrhosis of liver; F17.210 Nicotine dependence, cigarettes, uncomplicated; Z79.82 Long term (current) use of aspirin; Z79.899 Other long term (current) drug therapy; Z98.890 Other specified postprocedural states
CPT/HCPCS: 49083; J3490; P9047; A6258; A6449

== ENCOUNTER 2022-06-19 07:07 | Day surgery (SDC) | payer MEDICARE, MEDICAID ==
[~2022-06-19] VITALS: Ht 170.2 cm; Wt 69.6 kg
[~2022-06-19 07:07] MED LIST changes: +LACT10SO78 PO
[2022-06-19] MEDS ORDERED: LIDOcaine 1%/PF 5ML 10 MG/ML VIAL IJ STA (07:17)
[2022-06-19] MEDS ORDERED: albumin 25% 100mL bottle x 1 IV PRN (07:40)
[2022-06-19 07:57] VITALS: BP 151/80
[2022-06-19 08:39] VITALS: BP 148/90
[2022-06-19 08:54] VITALS: BP 145/78
[2022-06-19 09:10] VITALS: BP 122/66
[2022-06-19 09:22] VITALS: BP_SYST 120; BP_DIAS 70; BP_DIAS 71
[2022-06-19 09:38] VITALS: BP 120/70
== END 2022-06-19 09:45 | disposition home or self-care (01) ==
LOC: SSTAY O 07:07
PROVIDERS: ATTEND Radiology Vascular & Interventional Radiology
DX: R18.8 Other ascites (principal); R14.0 Abdominal distension (gaseous); B19.20 Unspecified viral hepatitis C without hepatic coma; I34.0 Nonrheumatic mitral (valve) insufficiency; K74.60 Unspecified cirrhosis of liver; F11.10 Opioid abuse, uncomplicated; Z98.890 Other specified postprocedural states; F17.210 Nicotine dependence, cigarettes, uncomplicated; Z79.82 Long term (current) use of aspirin; Z79.899 Other long term (current) drug therapy
CPT/HCPCS: 49083; J3490; P9047; A6258

== ENCOUNTER 2022-07-17 06:40 | Day surgery (SDC) | payer MEDICARE, MEDICAID ==
[~2022-07-17] VITALS: Ht 170.2 cm; Wt 69.1 kg
[2022-07-17] MEDS ORDERED: LIDOcaine 1% 30ml preserv. free vial SQ STA (06:53)
[2022-07-17 06:58] VITALS: BP 146/77
[2022-07-17] MEDS ORDERED: albumin 25% 100mL bottle x 1 IV PRN (07:05)
[2022-07-17 08:13] VITALS: BP 154/84
[2022-07-17 08:25] VITALS: BP 165/81
[2022-07-17 08:43] VITALS: BP 140/66
[2022-07-17 08:53] VITALS: BP 134/70
== END 2022-07-17 09:00 | disposition home or self-care (01) ==
LOC: SSTAY O 06:40
PROVIDERS: ATTEND Radiology Vascular & Interventional Radiology
DX: R18.8 Other ascites (principal); R14.0 Abdominal distension (gaseous); K74.60 Unspecified cirrhosis of liver; B19.20 Unspecified viral hepatitis C without hepatic coma; I34.0 Nonrheumatic mitral (valve) insufficiency; F11.10 Opioid abuse, uncomplicated; F15.90 Other stimulant use, unspecified, uncomplicated; F17.210 Nicotine dependence, cigarettes, uncomplicated; Z98.890 Other specified postprocedural states; Z72.89 Other problems related to lifestyle; Z79.899 Other long term (current) drug therapy; Z79.82 Long term (current) use of aspirin
CPT/HCPCS: 49083; J3490; P9047; A6258

== ENCOUNTER 2022-08-22 06:25 | Day surgery (SDC) | payer MEDICARE, MEDICAID ==
[2022-08-22] VITALS (7 sets, daily range): BP systolic 117–169; BP diastolic 64–92
[~2022-08-22] VITALS: Ht 170.2 cm; Wt 71.9 kg
[2022-08-22] MEDS ORDERED: albumin 25% 100mL bottle x 1 IV PRN (06:45)
== END 2022-08-22 09:45 | disposition home or self-care (01) ==
LOC: SSTAY O 06:25
PROVIDERS: ATTEND Radiology Vascular & Interventional Radiology
DX: R18.8 Other ascites (principal); R14.0 Abdominal distension (gaseous); B19.20 Unspecified viral hepatitis C without hepatic coma; K74.60 Unspecified cirrhosis of liver; F11.10 Opioid abuse, uncomplicated; F17.210 Nicotine dependence, cigarettes, uncomplicated; Z98.890 Other specified postprocedural states; F10.91 Alcohol use, unspecified, in remission; Z79.899 Other long term (current) drug therapy; Z79.82 Long term (current) use of aspirin
CPT/HCPCS: 49083; C1729; J3490; P9047; A6258; A6449

== ENCOUNTER 2022-11-03 08:16 | Day surgery (SDC) | payer MEDICARE, MEDICAID ==
[~2022-11-03] VITALS: Ht 170.2 cm; Wt 69.8 kg
[2022-11-03] MEDS ORDERED: albumin 25% 100mL bottle x 1 IV PRN (08:40)
[2022-11-03 09:50] VITALS: BP_SYST 123; BP_SYST 155; BP_DIAS 63; BP_DIAS 93; PULSE 49; PULSE 55; RESP 14; RESP 15; O2SAT 95; O2SAT 96
[2022-11-03 10:05] VITALS: BP 141/77; PULSE 45; RESP 15; O2SAT 95
[2022-11-03 10:20] VITALS: BP 128/65; PULSE 46; RESP 15; O2SAT 95
== END 2022-11-03 10:55 | disposition home or self-care (01) ==
LOC: SSTAY O 08:16
PROVIDERS: ATTEND Radiology Vascular & Interventional Radiology
DX: R18.8 Other ascites (principal); R14.0 Abdominal distension (gaseous); K74.60 Unspecified cirrhosis of liver; F11.10 Opioid abuse, uncomplicated; F17.210 Nicotine dependence, cigarettes, uncomplicated; Z98.890 Other specified postprocedural states; Z86.19 Personal history of other infectious and parasitic diseases; F10.91 Alcohol use, unspecified, in remission; Z79.899 Other long term (current) drug therapy; Z79.82 Long term (current) use of aspirin
CPT/HCPCS: 49083; C1729; J3490; P9047; A6258; A6449

== ENCOUNTER 2023-01-27 08:17 | Day surgery (SDC) | payer MEDICARE, MEDICAID ==
[~2023-01-27] VITALS: Ht 170.2 cm; Wt 70.0 kg
[2023-01-27 08:35] VITALS: BP 105/89; PULSE 65; RESP 16; TEMP 98.1; O2SAT 96
[2023-01-27] MEDS ORDERED: normal saline 1000ml 1,000 ML IV PRN (08:35)
[2023-01-27] MEDS ORDERED: albumin 25% 100mL bottle x 1 IV PRN (08:35)
[2023-01-27 09:50] VITALS: BP 141/79; PULSE 55; RESP 16; O2SAT 94
[2023-01-27] MEDS ORDERED: LACT10SO3 PO (09:56)
[2023-01-27 10:05] VITALS: BP 152/84; PULSE 60; RESP 15; O2SAT 94
[2023-01-27 10:15] VITALS: BP 134/76; PULSE 52; RESP 17; O2SAT 94
[2023-01-27 10:28] VITALS: BP 128/66; PULSE 51; RESP 16; O2SAT 96
== END 2023-01-27 10:28 | disposition home or self-care (01) ==
LOC: SSTAY O 08:17
PROVIDERS: ATTEND Radiology Diagnostic Radiology
DX: R18.8 Other ascites (principal); R14.0 Abdominal distension (gaseous); K74.60 Unspecified cirrhosis of liver; F17.210 Nicotine dependence, cigarettes, uncomplicated; F10.91 Alcohol use, unspecified, in remission; F11.10 Opioid abuse, uncomplicated; Z79.899 Other long term (current) drug therapy; Z79.82 Long term (current) use of aspirin; Z86.19 Personal history of other infectious and parasitic diseases
CPT/HCPCS: 49083; C1729; P9047; A6258; A6449

== ENCOUNTER 2024-09-22 08:27 | Outpatient (CLI) | payer MEDICARE, MEDICAID ==
[~2024-09-22 08:27] MED LIST changes: +LACT-373 PO
--- NOTE | 2024-09-22 10:39 | RADIOLOGY REPORT ---
Exam: US ULTRASOUND OF ABDOMEN Clinical History: VENTRAL INCISIONAL HERNIA Comparison: PARACENTESIS THERAPEUTIC (A) on DOS: 08/22/22, PARACENTESIS THERAPEUTIC (A) on DOS: 07/17/22, PARACENTESIS THERAPEUTIC (A) on DOS: 06/19/22, PARACENTESIS THERAPEUTIC (A) on DOS: 05/20/22 Technique: Targeted sonographic evaluation of the soft tissues of the anterior abdominal wall was obtained util izing grayscale and color Doppler imaging. Findings/Impression: Fluid containing structure in the subcutaneous soft-tissue overlying hernia mesh in the anterior abdo dano wall which measures 4.3 x 2.0 x 5.9 cm. This may represent a postoperative seroma.
== END 2024-09-22 23:59 | disposition home or self-care (01) ==
LOC: RAD 08:27
PROVIDERS: ATTEND Student in an Organized Health Care Education/Training Program
DX: K43.2 Incisional hernia without obstruction or gangrene (principal)
CPT/HCPCS: 76705

== ENCOUNTER 2024-12-14 09:52 | Outpatient (CLI) | payer MEDICARE, MEDICAID ==
--- NOTE | 2024-12-14 14:00 | RADIOLOGY REPORT ---
INDICATION: CIRRHOSIS OF LIVER TECHNIQUE: Multiple real-time sonographic images of the abdomen were obtained. COMPARISON: US ULTRASOUND OF ABDOMEN on DOS: 09/22/24, PARACENTESIS THERAPEUTIC (A) on DOS: 08/22/22, PARACENTESIS THERAPEUTIC (A) on DOS: 07/17/22, PARACENTESIS THERAPEUTIC (A) on DOS: 06/19/22, PARACENTESIS THERAPEUTIC (A) on DOS: 05/20/22 FINDINGS: Hepatic cirrhosis. Small volume ascites. Small pleural effusion on the right. No gallstones. Gallbladder wall measures 3 mm. Common bile duct measures 5 mm. Right kidney measures 10 cm. No hydronephrosis. Pancreas not seen due to overlying bowel gas. IMPRESSION: Hepatic cirrhosis. Small volume ascites. Small pleural effusion on the right.
== END 2024-12-14 23:59 | disposition home or self-care (01) ==
LOC: RAD 09:52
PROVIDERS: ATTEND Student in an Organized Health Care Education/Training Program
DX: K74.60 Unspecified cirrhosis of liver (principal); J90 Pleural effusion, not elsewhere classified; R18.8 Other ascites
CPT/HCPCS: 76700